=== PATIENT | female | born 1955 | race Caucasian/White ===

== ENCOUNTER → 2016-11-23 08:35 | Outpatient (CLI) | payer MEDICARE ==
[2016-11-23 09:09] LABS: BASOPHILS 0.5 % (0-2); EOSINOPHILS 4.6 % (0-7); HEMATOCRIT 45.9 % (36.0-48.0); HEMOGLOBIN 15.5 g/dL (12-16); IMMATURE GRANULOCYTES 0.2 % (0-5); LYMPHOCYTES 33.9 % (15-50); MCH 32.8 pg (26.0-34.0); MCHC 33.8 g/dL (31.0-37.0); MEAN PLATELET VOLUME 9.1 fL (7.4-10.4); MONOCYTES 6.3 % (2-11); NEUTROPHILS 54.5 % (40-80); PLATELET COUNT 220 10x3/uL (130-400); RBC 4.73 10x6/uL (4.00-5.40); RDW 11.6 % (11.5-14.5); WBC 8.5 10x3/uL (4.8-10.8)
[2016-11-23 09:33] LABS: ALBUMIN 3.9 g/dL (3.4-5.0); ALKALINE PHOSPHATASE 63 U/L (46-116); ALT (SGPT) 51 U/L (10-68); BILIRUBIN - TOTAL 0.26 mg/dL (0.2-1.3); CALC OSMOLALITY 274 mosm/kg (275-300); CALCIUM 9.3 mg/dL (8.5-10.1); CARBON DIOXIDE 32.6 mmol/L (21.0-32.0); CHLORIDE - SERUM 101 mmol/L (98-107); CHOL - HDL RATIO 2.1 ratio (2.3-4.1); CHOLESTEROL, TOTAL 139 mg/dL (0-200); CREATININE - SERUM 0.6 mg/dL (0.6-1.3); GLUCOSE 102 mg/dL (74-106); HDL CHOLESTEROL 67 mg/dL (32-96); LDL CHOLESTEROL 56 mg/dL (0-100); LDL-HDL RATIO 0.8 ratio (1.5-3.5); POTASSIUM - SERUM 4.3 mmol/L (3.5-5.1); PROTEIN - SERUM 8.2 g/dL (6.4-8.2); SODIUM 139 mmol/L (136-145); T4 THYROXIN - FREE 1.21 ng/dL (0.76-1.46); THYROID STIMULATING HORMONE 1.18 uIU/mL (0.36-3.74); TRIGLYCERIDE 84 mg/dL (30-200); UREA NITROGEN 5 mg/dL (7-18); eGFR NON AFRICAN AMERICAN > 90 mL/min (90-120)
== END | disposition home or self-care (01) ==
LOC: D.LAB 08:35
PROVIDERS: Family Medicine
DX: J44.9 Chronic obstructive pulmonary disease, unspecified (principal); Z00.00 Encounter for general adult medical examination without abnormal findings; E78.5 Hyperlipidemia, unspecified; I10 Essential (primary) hypertension; E55.9 Vitamin D deficiency, unspecified

== ENCOUNTER 2017-11-19 13:18 | Inpatient (IN) | payer MEDICARE ==
[~2017-11-19] VITALS: Ht 165.1 cm; Wt 49.9 kg
[2017-11-19] MEDS ORDERED: ADVAIR 500/501 DISK INH (13:24)
[2017-11-19] MEDS ORDERED: INDERAL 40 MG T40 MG PO (13:25)
[2017-11-19] MEDS ORDERED: PROAIR HFA8.5 GM INH (13:25)
[2017-11-19] MEDS ORDERED: IPRAT-ALBUT 0.5-3 ML UPD (13:25)
[2017-11-19] MEDS ORDERED: TYLENOL #4 W/CO1 TAB PO (13:26)
[2017-11-19] MEDS ORDERED: ATIVAN0.5 MG PO (13:27)
[2017-11-19] MEDS ORDERED: SOMA350 MG PO (13:27)
[2017-11-19 13:57] LABS: BASOPHILS 0.2 % (0-2); EOSINOPHILS 1.1 % (0-7); HEMATOCRIT 45.4 % (36.0-48.0); HEMOGLOBIN 15.7 g/dL (12-16); IMMATURE GRANULOCYTES 0.1 % (0-5); LYMPHOCYTES 20.9 % (15-50); MCH 32.7 pg (26.0-34.0); MCHC 34.6 g/dL (31.0-37.0); MCV 94.6 fL (80.0-100.0); MEAN PLATELET VOLUME 8.9 fL (7.4-10.4); MONOCYTES 4.4 % (2-11); NEUTROPHILS 73.3 % (40-80); PLATELET COUNT 225 10x3/uL (130-400); RDW 11.5 % (11.5-14.5); WBC 9.3 10x3/uL (4.8-10.8)
[2017-11-19 14:16] LABS: ALBUMIN 4.1 g/dL (3.4-5.0); ALKALINE PHOSPHATASE 66 U/L (46-116); ALT (SGPT) 41 U/L (10-68); BILIRUBIN - TOTAL 0.37 mg/dL (0.2-1.3); CALC OSMOLALITY 265 mosm/kg (275-300); CALCIUM 9.3 mg/dL (8.5-10.1); CARBON DIOXIDE 28.6 mmol/L (21.0-32.0); CHLORIDE - SERUM 96 mmol/L (98-107); CREATININE - SERUM 0.5 mg/dL (0.6-1.3); GLUCOSE 144 mg/dL (74-106); POTASSIUM - SERUM 3.8 mmol/L (3.5-5.1); PROTEIN - SERUM 8.3 g/dL (6.4-8.2); SODIUM 133 mmol/L (136-145); UREA NITROGEN 4 mg/dL (7-18); eGFR NON AFRICAN AMERICAN > 90 mL/min (90-120)
[2017-11-19 14:31] LABS: CKMB 1.2 U/L (0.0-3.6)
[2017-11-19 14:32] LABS: TROPONIN-I < 0.017 ng/mL (0.000-0.060)
[2017-11-19 15:00] VITALS: BP 192/88
[2017-11-19 15:39] LABS: CREATINE KINASE 90 UL (21-215); LIPASE 88 U/L (73-393); PRO BNP 188 pg/mL (0-125)
[2017-11-19 15:40] LABS: TROPONIN-I < 0.017 ng/mL (0.000-0.060)
[2017-11-19 16:16] VITALS: BP 161/84
[2017-11-19 16:36] LABS: UDS - AMPHET NEGATIVE QUAL (NEGATIVE); UDS - BARB NEGATIVE QUAL (NEGATIVE); UDS - BENZO NEGATIVE QUAL (NEGATIVE); UDS - COCAINE NEGATIVE QUAL (NEGATIVE); UDS - OPIATE POSITIVE QUAL (NEGATIVE); UDS - PCP NEGATIVE QUAL (NEGATIVE); UDS - THC NEGATIVE QUAL (NEGATIVE)
[2017-11-19 16:41] LABS: APPEARANCE CLEAR (CLEAR); BILIRUBIN NEGATIVE (NEGATIVE); COLOR YELLOW (YELLOW); GLUCOSE NEGATIVE (NEGATIVE); KETONE SMALL mg/dL (NEGATIVE); NITRITE POSITIVE (NEGATIVE); PROTEIN NEGATIVE (NEGATIVE); UROBILINOGEN NORMAL (NORMAL)
[2017-11-19 16:43] LABS: BACTERIA MODERATE /hpf (NONE SEEN); RED CELLS - URINE 0-5 /hpf (0-5); WHITE CELLS - URINE 0-5 /hpf (0-5)
[2017-11-19 17:00] VITALS: BP 103/99
[2017-11-19 18:00] VITALS: BP 193/96
[2017-11-19 19:03] VITALS: BP 178/88
[2017-11-19] MEDS ORDERED: PRAVACHOL40 MG PO (20:13)
[2017-11-19] MEDS ORDERED: B-12 DOTS500 MCG PO (20:15)
[2017-11-19] MEDS ORDERED: CALCI-CHEW1 TAB.CHEW PO (20:16)
[2017-11-19] MEDS ORDERED: VITAMIN B-12500 MCG PO (20:17)
[2017-11-19] MEDS ORDERED: VITAMIN D31000 UNI2 PO (20:17)
[2017-11-20] VITALS: BP 142/58
[2017-11-20 04:00] VITALS: BP 150/84
[2017-11-20 05:28] LABS: BASOPHILS 0.2 % (0-2); EOSINOPHILS 0 % (0-7); HEMATOCRIT 40.2 % (36.0-48.0); HEMOGLOBIN 13.8 g/dL (12-16); IMMATURE GRANULOCYTES 0.2 % (0-5); LYMPHOCYTES 26.8 % (15-50); MCHC 34.3 g/dL (31.0-37.0); MCV 93.3 fL (80.0-100.0); MEAN PLATELET VOLUME 8.9 fL (7.4-10.4); MONOCYTES 7.8 % (2-11); PLATELET COUNT 247 10x3/uL (130-400); RBC 4.31 10x6/uL (4.00-5.40); RDW 11.3 % (11.5-14.5); WBC 9.3 10x3/uL (4.8-10.8)
[2017-11-20 05:43] LABS: ALBUMIN 3.4 g/dL (3.4-5.0); ALKALINE PHOSPHATASE 45 U/L (46-116); ALT (SGPT) 32 U/L (10-68); CALC OSMOLALITY 264 mosm/kg (275-300); CALCIUM 8.6 mg/dL (8.5-10.1); CARBON DIOXIDE 29.4 mmol/L (21.0-32.0); CHLORIDE - SERUM 99 mmol/L (98-107); CREATININE - SERUM 0.5 mg/dL (0.6-1.3); GLUCOSE 109 mg/dL (74-106); MAGNESIUM - SERUM 1.5 mg/dL (1.8-2.4); POTASSIUM - SERUM 3.4 mmol/L (3.5-5.1); SODIUM 133 mmol/L (136-145); eGFR NON AFRICAN AMERICAN > 90 mL/min (90-120)
[2017-11-20 05:48] LABS: UREA NITROGEN 7 mg/dL (7-18)
[2017-11-20 09:06] VITALS: BP 152/79
[2017-11-20 11:15] VITALS: BP 152/78
[2017-11-20 16:11] VITALS: BP 173/74
[2017-11-20 21:27] VITALS: BP 181/84
[2017-11-21] VITALS: BP 113/86
[2017-11-21 04:00] VITALS: BP 146/72
[2017-11-21 05:47] LABS: BASOPHILS 0.1 % (0-2); EOSINOPHILS 0 % (0-7); IMMATURE GRANULOCYTES 0.2 % (0-5); LYMPHOCYTES 32.2 % (15-50); MCH 31.6 pg (26.0-34.0); MCHC 33.3 g/dL (31.0-37.0); MCV 94.7 fL (80.0-100.0); MEAN PLATELET VOLUME 9.2 fL (7.4-10.4); MONOCYTES 7.6 % (2-11); NEUTROPHILS 59.9 % (40-80); PLATELET COUNT 250 10x3/uL (130-400); RBC 4.12 10x6/uL (4.00-5.40); RDW 11.5 % (11.5-14.5); WBC 8.9 10x3/uL (4.8-10.8)
[2017-11-21 06:29] LABS: ALBUMIN 3.3 g/dL (3.4-5.0); ALKALINE PHOSPHATASE 40 U/L (46-116); ALT (SGPT) 33 U/L (10-68); BILIRUBIN - TOTAL 0.37 mg/dL (0.2-1.3); CALC OSMOLALITY 268 mosm/kg (275-300); CALCIUM 8.4 mg/dL (8.5-10.1); CARBON DIOXIDE 24.5 mmol/L (21.0-32.0); CHLORIDE - SERUM 102 mmol/L (98-107); CREATININE - SERUM 0.4 mg/dL (0.6-1.3); GLUCOSE 82 mg/dL (74-106); MAGNESIUM - SERUM 1.7 mg/dL (1.8-2.4); POTASSIUM - SERUM 3.5 mmol/L (3.5-5.1); PROTEIN - SERUM 6.7 g/dL (6.4-8.2); SODIUM 136 mmol/L (136-145); UREA NITROGEN 6 mg/dL (7-18); eGFR NON AFRICAN AMERICAN > 90 mL/min (90-120)
[2017-11-21 08:15] VITALS: BP 127/67
[2017-11-21 12:19] VITALS: BP 161/74
[2017-11-21 16:00] VITALS: BP 143/70
[2017-11-21 20:00] VITALS: BP 187/88
[2017-11-22 05:33] VITALS: BP 134/57
[2017-11-22 08:20] VITALS: BP 137/71
[2017-11-22 13:16] VITALS: BP 152/68
[2017-11-22 15:09] VITALS: BMI 18.3
[2017-11-22 16:37] VITALS: Ht 165.1 cm; Wt 49.9 kg
[2017-11-22 17:05] VITALS: BP 162/72
[2017-11-22 20:35] VITALS: BP 159/74
[2017-11-23 01:28] VITALS: BP 159/63
[2017-11-23 04:19] VITALS: BP 148/78
[2017-11-23 07:21] LABS: BASOPHILS 0.3 % (0-2); EOSINOPHILS 1.3 % (0-7); HEMATOCRIT 38.6 % (36.0-48.0); HEMOGLOBIN 13.2 g/dL (12-16); IMMATURE GRANULOCYTES 0.1 % (0-5); LYMPHOCYTES 38.8 % (15-50); MCH 32.2 pg (26.0-34.0); MCHC 34.2 g/dL (31.0-37.0); MCV 94.1 fL (80.0-100.0); MONOCYTES 9.5 % (2-11); PLATELET COUNT 208 10x3/uL (130-400); RDW 11.4 % (11.5-14.5); WBC 9.1 10x3/uL (4.8-10.8)
[2017-11-23 08:03] LABS: CALC OSMOLALITY 279 mosm/kg (275-300); CALCIUM 8.4 mg/dL (8.5-10.1); CARBON DIOXIDE 31.7 mmol/L (21.0-32.0); CHLORIDE - SERUM 104 mmol/L (98-107); CREATININE - SERUM 0.4 mg/dL (0.6-1.3); GLUCOSE 105 mg/dL (74-106); POTASSIUM - SERUM 3.2 mmol/L (3.5-5.1); SODIUM 142 mmol/L (136-145); UREA NITROGEN 5 mg/dL (7-18); eGFR NON AFRICAN AMERICAN > 90 mL/min (90-120)
[2017-11-23 08:20] VITALS: BP 163/79
[2017-11-23 12:16] VITALS: BP 127/60
[2017-11-23 16:33] VITALS: BP 129/65
[2017-11-23 22:28] VITALS: BP 189/80
[2017-11-24 04:16] VITALS: BP 164/68
[2017-11-24 09:42] VITALS: BP 179/82
[2017-11-24] MEDS ORDERED: PROTONIX40 MG PO (11:22)
[2017-11-24] MEDS ORDERED: MORPHINE SULFAT15 M4 PO (11:26)
[2017-11-29 18:09] LABS: AEROBE ID Final report (())
== END 2017-11-24 13:50 | disposition home or self-care (01) | DRG 552 ==
LOC: D.ER 13:18 → D.MS 17:45 → D.EDHOLD 17:45 → D.MS 18:30
PROVIDERS: Family Medicine
DX: M51.16 Intervertebral disc disorders with radiculopathy, lumbar region (principal); F17.203 Nicotine dependence unspecified, with withdrawal; Z68.1 Body mass index [BMI] 19.9 or less, adult; N30.90 Cystitis, unspecified without hematuria; I10 Essential (primary) hypertension; J44.9 Chronic obstructive pulmonary disease, unspecified; F41.9 Anxiety disorder, unspecified; E53.8 Deficiency of other specified B group vitamins; E55.9 Vitamin D deficiency, unspecified; G89.29 Other chronic pain; M81.0 Age-related osteoporosis without current pathological fracture; R63.0 Anorexia

== ENCOUNTER 2018-02-21 18:03 | Inpatient (IN) | payer MEDICARE ==
[~2018-02-21] VITALS: Ht 165.1 cm; Wt 44.3 kg
--- NOTE | ~2018-02-21 | EC ---
PATIENT:ANTONI JOSEPH DATE OF SERVICE: 02/21/18 SEX: F MEDICAL RECORD: [id number] DATE OF : 53 [facility] AGE OF PATIENT: 63 ADMISSION DATE: 02/21/18 REFERRING PHYSICIAN: INTERPRETING PHYSICIAN: KHADRA FREDERICK MD ECHOCARDIOGRAM REPORT ECHO CHARGES 4 ECHO COMPLETE Date: 02/22/18 CLINICAL DIAGNOSIS: SOB,CP ECHOCARDIOGRAPHIC MEASUREMENTS (adult normal given) AC root (d.<3.7cm) 3.1 cm LV Septum d (<1.2 cm> 1.0 cm Valve Excursion 1.4 cm LV Septum (systole) 1.1 cm Left Atria (s.<4.0cm> 3.6 cm LVPW d(<1.2cm) 0.7 cm RV (d.<2.3cm) 2.0 cm LVPW (sytole) 1.0 cm LV diastole(<5.6CM) 4.0 cm MV E-F(>70mm/sec) cm LV systole 2.7 cm LVOT Diameter 1.6 cm MV exc.(>10mm) cm Est.ejection fraction (50-75%) % DOPPLER: LVIT cm/sec A 106 cm/sec E 73 cm/sec LA cm/sec RVSP 17.6 mmHg LVOT cm/sec AOP1/2T m/s Asc. Ao cm/sec RVOT 81 cm/sec RA cm/sec PA 45 cm/sec AV Gradient Peak 9.8 mmHg AV Mean 7.1 mmHg AV Area 2.2 cm MV Gradient Peak 7.8 mmHg MV Mean 3.5 mmHg MV Area cm COMMENTS: Physical Medicine Teacher: Rut KRISHNAMURTHY Ethnographic Materials Conservator: 1 Dr. Frederick TAPE# PACS Pericardial Effusion N DATE OF SERVICE: 02/22/2018 Echocardiogram FINDINGS: 1. Left ventricular chamber size is within normal limits. Left ventricular systolic function is normal. Overall ejection fraction estimated at 50%. 2. Left atrium, right atrium, and right ventricle chamber sizes are within normal limits. 3. Valvular structures have normal structure and motion. ECHOCARDIOGRAM REPORT [id number] ANTONI JOSEPH BRAD 4. Doppler interrogation reveals trace mitral regurgitation, trace tricuspid regurgitation, no other valvular insufficiency or stenosis. Pulmonary systolic pressure is estimated at 18 mmHg. 5. No evidence of pericardial effusion or left ventricular thrombus. TRANSINT:[id number] Voice Confirmation ID: [id number] DOCUMENT ID: [id number] KHADRA FREDERICK MD at 1138 CC: [id number] DICTATION DATE: 02/22/18 1559 PATTERN GRADER CUTTER: 02/22/18 1820 ADM IN [facility] [address] [id number]
--- NOTE | ~2018-02-21 | HEMODYNAMI ---
PATIENT:ANTONI JOSEPH MEDICAL RECORD: [id number] : 53 [facility] D.2[id number] ADMISSION DATE: 02/21/18 Generatedon:02/23/20189:45 Patient name: ANTONI JOSEPH Patient #: [id number] SSN: : 1955 Date of study: 02/23/2018 Page: Of Hemodynamic Procedure Report Patient Data Patient Demographics Procedure consent was obtained First Name: ANTONI Gender: Female Last Name: JAKE : 1955 [facility] Initial: BRAD Age: 63 year(s) Patient #: [id number] Race: Unknown Additional ID: [id number] Contact details Address: [address] [place] [address] State: [place] City: [facility] Zip code: [address] Admission Admission Data Admission Date: 02/21/2018 Admission Time: 21:28 Room #: D.2118 Weight (lbs.): 90.39 Weight (kg.): 41 Lab Results Lab Result Date: 02/23/2018 Lab Result Time: 0:00 Biochemistry Name Units Result Min Max BUN mg/dl 9 --(*---)-- 7 18 Creatinine mg/dl 0.4 *-(----)-- 0.6 1.3 CBC Name Units Result Min Max Hemoglobin g/dl 13 -*(----)-- 13.5 17.5 Procedure Procedure Types Cath Procedure Diagnostic Procedure FFR/IVUS Intra-Coronary IVUS Initial PCI Procedure Coronary Stent Coronary Stent Initial x2 Peripheral Cath Diagnostic Procedure Systems Planner Peripheral Procedures Sasgw-Ftktuul-Zcl-Off IVUS Peripheral Initial Vessel Procedure Description Procedure Date Procedure Date: 02/23/2018 Procedure Start Time: 9:23 Procedure End Time: 9:44 Procedure Staff Name Function Luther Frederick MD Performing Physician Licha Gibbs RT Monitor Joy Hunt RT Scrub Cait Rodriguez RN Nurse Procedure Data Cath Procedure Fluoroscopy Diagnostic fluoroscopy Total fluoroscopy Time: 4.5 time: 4.5 min min Diagnostic fluoroscopy Total fluoroscopy dose: 500 dose: 500 mGy mGy Contrast Material Contrast Material Type Amount (ml) Isovue 300 113 Entry Location Entry Primary Successful Side Size Upsize Upsize Entry Closure Succes sful Closure Location (Fr) 1 (Fr) 2 (Fr) Remarks Device Remarks Femoral Left 6 Fr Exoseal artery Short Estimated blood loss: 10 ml Diagnostic catheters Device Type Used For End Catheter Placement MULTIPACK Pigtail 5 Fr Procedure catheter Procedure Complications No complications Procedure Medications Medication Administration Route Dosage Oxygen etCO2 Nasal cannula 2 l/min Lidocaine 2% added to field 20 Heparin Flush Bag added to field 2 bags (1000units/500ml NS) 0.9% NaCl I.V. 100 ml/hr Versed I.V. 1 mg Fentanyl I.V. 50 mcg Heparin Bolus I.V. 4000 units Versed I.V. 1 mg Fentanyl I.V. 50 mcg Fentanyl I.V. 50 mcg Versed I.V. 0.5 mg Hemodynamics Rest HGB: 13 (g/dl) Heart Rate: 98 (bpm) Snapshots Pre Cath Intra NCS Post Cath Vital Signs Time Heart Resp SPO2 etCO2 NIBP (mmHg) Rhythm Pain Sedation Rate (ipm) (%) (mmHg) Status Level (bpm) 8:49:22 109 25 95 0 151/97(118) NSR 0 (11) 10(A) , No pain 8:53:22 105 21 99 23.6 133/84(118) NSR 0 (11) 10(A) , No pain 8:57:30 101 18 98 25.1 114/75(93) NSR 0 (11) 10(A) , No pain 9:01:34 100 16 98 31.2 108/71(88) NSR 0 (11) 10(A) , No pain 9:05:35 102 13 97 14.4 99/70(82) NSR 0 (11) 10(A) , No pain 9:09:35 101 13 97 8.3 99/66(86) NSR 0 (11) 10(A) , No pain 9:13:35 98 13 97 10.6 106/65(80) NSR 0 (11) 10(A) , No pain 9:17:36 95 19 98 15.2 100/65(83) NSR 0 (11) 10(A) , No pain 9:21:36 92 14 98 27.3 92/61(82) NSR 0 (11) 10(A) , No pain 9:25:33 92 15 98 10.6 96/56(81) NSR 0 (11) 9(A) , No pain 9:29:33 95 18 98 26.6 89/57(72) NSR 0 (11) 9(A) , No pain 9:33:30 93 15 98 33.4 92/52(72) NSR 0 (11) 9(A) , No pain 9:37:26 97 15 99 31.9 104/62(80) NSR 0 (11) 9(A) , No pain 9:41:24 101 16 99 14.4 107/67(84) NSR 0 (11) 10(A) , No pain Medications Time Medication Route Dose Verified Delivered Reason Notes Effectiveness by by 8:55:14 Oxygen etCO2 2 Luther Akbarie used for Nasal l/min Otoniel Rodriguez RN procedure cannula 8:55:23 Lidocaine 2% added 20ml Luther Luther for local to vial Otoniel Frederick MD anesthetic field 8:55:29 Heparin Flush added 2 Luther Luther used for Bag to bags Otoniel Frederick MD procedure (1000units/500ml field NS) 8:55:37 0.9% NaCl I.V. 100 Luther Buffie Per physician ml/hr Otoniel Rodriguez RN 9:21:24 Versed I.V. 1 mg Luther Webberie for sedation Otoniel Rodriguez RN 9:21:30 Fentanyl I.V. 50 Luther Buffie for sedation mcg Otoniel Rodriguez RN 9:25:18 Versed I.V. 1 mg Luther Buffie for sedation Otoniel Rodriguez RN 9:25:21 Fentanyl I.V. 50 Luther Buffie for sedation mcg Otoniel Rodriguez RN 9:26:55 Heparin Bolus I.V. 4000 Luther Buffie for verifi ed units Otoniel Rodriguez RN anticoagulation with dr frederick 9:31:49 Fentanyl I.V. 50 Luther Buffie for sedation mcg Otoniel Rodriguez RN 9:31:55 Versed I.V. 0.5 Luther Buffie for sedation mg Otoniel Rodriguez RN Procedure Log Time Note 8:26:10 Patient Weight : 90.39 lbs 8:27:03 Cait Rodriguez RN sent for patient. Start room use. 8:27:04 Time tracking: Regular hours (M-F 7:00 - 5:00) 8:27:09 Plan of Care:Hemodynamics will remain stable., Cardiac rhythm will remain stable., Comfort level will be maintained., Respiratory function will remain adequate., Patient/ family verbilizes understanding of procedure., Procedure tolerated without complication., Recovers from procedure without complications.. 8:36:01 Lab Result : Hemoglobin 13 g/dl 8:36:01 Lab Result : Creatinine 0.4 mg/dl 8:36:01 Lab Result : BUN 9 mg/dl 8:48:42 Patient received from Med II to CCL 2 Alert and oriented. Tansferred to table in Supine position. 8:48:43 Warm blankets applied, and tanesha hugger turned on for patient comfort. 8:48:44 Correct patient and procedure confirmed by team. 8:48:45 Signed procedure consent form obtained from patient. 8:48:46 ECG and BP/O2 sat monitors applied to patient. 8:48:47 Vital chart was started 8:48:48 Baseline sample Acquired. 8:49:05 Rhythm: sinus rhythm 8:49:06 Full Disclosure recording started 8:49:17 H&P Date Dictated: 02/23/2018 New H&P dictated by physician.. 8:49:19 Pre-procedure instructions explained to patient. 8:49:19 Pre-op teaching completed and patient verbalized understanding. 8:49:22 Family in patients room. 8:49:28 Patient NPO since Midnight. 8:49:30 Is the patient allergic to Iodine/contrast media? No. 8:49:32 Was the patient premedicated? No 8:49:32 Is patient on blood thinner?Yes 8:49:35 ACC The patient was administered the following blood thiners within the last 24 hours: ACCPlavix 8:49:38 Patient diabetic? No. 8:49:40 Previous problem with sedation/anesthesia? No ? 8:49:42 Snore? Yes 8:49:43 Sleep apnea? No 8:49:44 Deviated septum? No 8:49:45 Opens mouth fully? Yes 8:49:45 Sticks out tongue? Yes 8:49:49 Airway obstruction? Yes copd 8:49:51 Dentures? No ? 8:49:55 Pre procedure: right dorsailis pedis pulse 1+ Palpable, but thready & weak; easily obliterated 8:49:58 Pre procedure: left dorsailis pedis pulse 1+ Palpable, but thready & weak; easily obliterated 8:49:59 Patient pain scale 0/10 ?. 8:50:06 IV patent on arrival in left forearm with 0.9% NaCl at [facility]. 8:50:08 Lab results completed and on chart. 8:50:14 Left groin area was prepped with chlora-prep and draped in sterile fashion 8:50:14 Alarms reviewed by R. N. 8:50:15 Sharps counted by scrub and verified by R.N. 8:52:41 Physician paged 8:55:14 Oxygen 2 l/min etCO2 Nasal cannula was administered by Cait Rodriguez RN; used for procedure; 8:55:23 Lidocaine 2% 20ml vial added to field was administered by Luther Frederick MD; for local anesthetic; 8:55:29 Heparin Flush Bag (1000units/500ml NS) 2 bags added to field was administered by Luther Frederick MD; used for procedure; 8:55:37 0.9% NaCl 100 ml/hr I.V. was administered by Cait Rodriguez RN; Per physician; 9:05:56 Zero performed for pressure channel P1 9:12:39 Physician arrived 9:20:13 --------ALL STOP TIME OUT------ 9:20:14 Final Timeout: patient, procedure, and site verified with staff and physician. All members of the team are in agreement. 9:20:16 Left groin site verified by team. 9:20:22 Physical assessment completed. ASA score P 2 - A patient with mild systemic disease as per Luther Frederick MD. 9:20:27 Sedation plan: IV Moderate Sedation Medication:Versed, Fentanyl 9:21:24 Versed 1 mg I.V. was administered by Cait Rodriguez RN; for sedation; 9:21:30 Fentanyl 50 mcg I.V. was administered by Cait Rodriguez RN; for sedation; 9:23:37 Use device set Femoral Dx 9:23:40 Procedure started. 9:23:53 Local anesthetic to left femerol artery with Lidocaine 2% by Luther Frederick MD.INITIAL ACCESS ONLY 9:24:03 A 6 Fr Short sheath was inserted into the Left Femoral artery 9:25:18 Versed 1 mg I.V. was administered by Cait Rodriguez RN; for sedation; 9:25:21 Fentanyl 50 mcg I.V. was administered by Cait Rodriguez RN; for sedation; 9:25:22 ACIST Syringe (30959) opened to sterile field. 9:25:23 Bag Decanter (2002) opened to sterile field. 9:25:24 Medline Cath Pack ([id number]) opened to sterile field. 9:25:25 DIAGNOSTIC WIRE .035 260cm J wire (880720) opened to sterile field. 9:25:26 ACIST Hand Control (39806) opened to sterile field. 9:25:27 ACIST Manifold (61704) opened to sterile field. 9:25:29 Tegaderm 4 x 4 (1626W) opened to sterile field. 9:25:30 PERCUTANEOUS ENTRY 19GA needle opened to sterile field. 9:25:47 SHEATH 6FR Penn (GKH155) opened to sterile field. 9:26:06 A MULTIPACK Pigtail 5 Fr catheter was advanced over the wire and used for Procedure. 9:26:18 Abdominal angiogram w/ runoff was performed. 9:26:21 Left leg runoff performed. 9:26:22 Right leg runoff performed. 9:26:30 Catheter removed. 9:26:44 GUIDE 6FR XBLAD 3.5 catheter ([id number]) opened to sterile field. 9::55 Heparin Bolus 4000 units I.V. was administered by Cait Rodriguez RN; for anticoagulation; verified with dr frederick 9:26:58 6 Fr XBLAD3.5 guide catheter was inserted over the wire 9:28:02 Choice pt ex wire advanced. 9:28:18 Wire advanced across lesion. 9:29:02 [place] Stebbins Eagleye IVUS Catheter (44247O) opened to sterile field. 9:29:04 IVUS catheter advanced over wire. 9:30:09 IVUS catheter removed over wire. 9:31:49 Fentanyl 50 mcg I.V. was administered by Cait Rodriguez RN; for sedation; 9::55 Versed 0.5 mg I.V. was administered by Cait Rodriguez RN; for sedation; 9:33:04 Place stent Inflation Number: 1 A DIANE RX 3.0 x 22 stent ([id number]) was prepped and advanced across the Prox LAD. The stent was deployed at 15 SERGEY for 0:05 (min:sec). 9:35:10 Place stent Inflation Number: 2 A DIANE RX 2.5 x 08 stent ([id number]) was prepped and advanced across the Prox LAD. The stent was deployed at 15 SERGEY for 0:10 (min:sec). 9:35:23 Inflation number: 3 The stent balloon was then re-inflated across the Prox LAD to 19 SERGEY for 0:11 (min:sec). 9:35:58 Wire redirected to CX. 9:37:35 Place stent Inflation Number: 1 A DIANE RX 2.5 x 15 stent ([id number]) was prepped and advanced across the Mid CX. The stent was deployed at 15 SERGEY for 0:10 (min:sec). 9:39:29 EXOSEAL 6Fr (EX600) opened to sterile field. 9:39:45 Stent catheter was removed intact over wire. 9:39:46 Guide catheter removed. 9:39:59 Sheath removed intact; hemostasis achieved with Exoseal to the Left Femoral artery. 9:40:03 Procedure ended.(Physican Out) 9:40:52 Fluoroscopy time 04.50 minutes. 9:40:58 Flurop Dose total: 500 9:40:58 Fluoroscopy dose: 500 mGy 9:41:03 Contrast amount:Isovue 300 113ml. 9:41:04 Sharps counted by scrub and verified by R.N. 9:41:06 Insertion/operative site no bleeding no hematoma. 9:41:11 Post-op/insertion site Left Femoral artery dressed using a 4 x 4 and Tegaderm. 9:41:19 Post Procedure Pulses reassessed and unchanged 9:41:24 Post-procedure physical assessment completed. ASA score P 2 - A patient with mild systemic disease as per Luther Frederick MD. 9:41:27 Post procedure rhythm: unchanged. 9:41:30 Estimated blood loss: 10 ml 9:41:36 Post procedure instruction explained to patient.Patient verbalizes understanding. 9:43:09 Procedure type changed to Cath procedure, Diagnostic procedure, FFR/IVUS, Intra-Coronary IVUS Initial, PCI procedure, Coronary Stent, Coronary Stent Initial x2, Peripheral Cath Diagnostic Procedure, Systems Planner Peripheral Procedures, Xmtpg-Giwuysj-Fjh-Off, IVUS Peripheral Initial Vessel 9:43:12 Procedure and supply charges have been captured, reviewed, submitted and are correct. 9:44:02 Procedure Complication : No complications 9:44:04 Vital chart was stopped 9:44:07 See physician's report for complete and final results. 9:44:10 Report given to Pre/Post Procedure Room. 9:44:15 Patient transfered to Pre/Post Procedure Room with Stretcher. 9:44:17 Procedure ended. 9:44:17 Full Disclosure recording stopped 9:44:20 End room use (Document Last) Intervention Summary Intervention Notes Time ActionType Lesion and Equipment Used Action# Pressure Duration Attributes 9:33:04 Place stent Prox LAD DIANE RX 3.0 x 1 15 00:05 22 stent ([id number]) 9:35:10 Place stent Prox LAD DIANE RX 2.5 x 2 15 00:10 08 stent ([id number]) 9:35:23 Reinflate Prox LAD DIANE RX 2.5 x 3 19 00:11 stent 08 stent balloon ([id number]) 9:37:35 Place stent Mid CX IDANE RX 2.5 x 1 15 00:10 15 stent ([id number]) Device Usage Item Name Manufacture Quantity Catalog [facility] Lot# / Number Charge Number Stock Stock Serial# Code ACIST Syringe Acist 1 03933 774458 262253 024683 20 (63134) Medical Systems Inc Bag Decanter Microtek 1 2001S 108017 46469 817946 5 () Medical Inc. Medline Cath Medline 1 [id number] 168765 77790 718451 5 Pack ([id number]) DIAGNOSTIC St Jigar 1 567412 138410 363282 724606 30 WIRE .035 260cm J wire (821677) ACIST Hand Acist 1 78121 005904 830444 921943 5 Control Medical (47725) Systems Inc ACIST Manifold Acist 1 22956 561601 060077 917799 5 (94118) Medical Systems Inc Tegaderm 4 x 4 3M 1 1626W 881787 204327 470742 5 (1626W) PERCUTANEOUS Cook Medical 1 D74350 258574 150185 5 ENTRY 19GA needle SHEATH 6FR Terumo 1 OQT071 746785 775065 149573 40 Penn (NBT102) MULTIPACK Cardinal 1 058062 5 Pigtail 5 Fr Health catheter GUIDE 6FR Cardinal 1 [id number] 293505 932599 961538 10 XBLAD 3.5 Health catheter ([id number]) [place] 1 84377L 803066 999420 083262 8 Stebbins Eagleye IVUS Catheter (71483S) DIANE RX 3.0 x Medtronic 1 [id number] 942343 3082986 772053 5 [id number] 22 stent ([id number]) DIANE RX 2.5 x Medtronic 1 [id number] 995718 4813489 522912 5 [id number] 08 stent ([id number]) DIANE RX 2.5 x Medtronic 1 [id number] 973639 3088961 887805 5 [id number] 15 stent ([id number]) EXOSEAL 6Fr Cardinal 1 EX600 270714 123394 972884 10 (EX600) Health Signature Audit [place] Stage Time Signature Unsigned Intra-Procedure 02/23/2018 Licha Gibbs 9:45:09 AM RT(R) Signatures Monitor : Licha Gibbs Signature : RT Date : Time : [facility] [address] [place] [address]
--- NOTE | ~2018-02-21 | OP ---
PATIENT NAME: ANTONI JOSEPH MEDICAL RECORD: [id number] :53 LOCATION:[facility] ADMISSION DATE:02/21/18 SURGEON: KHADRA KLEIN MD DATE OF OPERATION: 02/23/2018 PROCEDURES: 1. PTCA and stent, left circumflex. 2. PTCA and stent, LAD. 3. Intravascular ultrasound of LAD. 4. Selective coronary angiography. INDICATION: Angina and coronary disease. PROCEDURE IN DETAIL: After informed consent was obtained with detailed description of risks and benefits as well as alternative therapies, the patient elected to proceed with angiogram and angioplasty. The right femoral area was prepped and draped in normal sterile fashion. The right femoral artery was cannulated via modified Seldinger technique with placement of 6-Ugandan sheath. All catheters were exchanged through this sheath. FINDINGS: The left anterior descending has greater than 80% stenosis, confirmed by intravascular ultrasound throughout the proximal portion. This was addressed with a 3.0 x 22 and a 2.5 x 8-mm Darian stents. Result was 0% residual stenosis throughout. The left circumflex had 80% stenosis in mid vessel. This was addressed with a 2.5 x 15-mm Darian. Result was 0% residual stenosis. OVERALL IMPRESSION: Successful PTCA and stent of LAD and circumflex, both going from 80% initial stenosis to 0% residual. TRANSINT:[id number] Voice Confirmation ID: [id number] DOCUMENT ID: [id number] KHADRA KLEIN MD at 1138 CC: [id number] DICTATION DATE: 02/23/18 0945 DUPLICATOR PUNCH SET UP OPERATOR: 02/23/18 1044 [place] [address]
--- NOTE | ~2018-02-21 | OP ---
PATIENT NAME: ANTONI JOSEPH MEDICAL RECORD: [id number] :53 LOCATION:D.M2 D.2118 ADMISSION DATE:02/21/18 SURGEON: KHADRA KLEIN MD DATE OF OPERATION: 02/22/2018 DATE OF SERVICE: 02/22/2018 PROCEDURES: 1. PTCA stent RCA. 2. Intravascular ultrasound RCA. 3. Left heart catheterization. 4. Selective coronary angiography. 5. Left ventriculogram. INDICATION: Unstable angina and coronary artery disease. PROCEDURE IN DETAIL: After informed consent was obtained and after a detailed description of risks, benefits as well as alternative therapies, the patient elected to proceed with angiogram and angioplasty. The right femoral area was prepped and draped in normal sterile fashion. Right femoral artery was cannulated via modified Seldinger technique with placement of 6-Vietnamese sheath. All catheters exchanged through this sheath. FINDINGS: Left ventriculogram was performed in standard 30-degree DUNCAN view, reveals good cardiac wall motion throughout all segments. Overall ejection fraction estimated 60%. SELECTIVE CORONARY ANGIOGRAPHY: 1. Left main has no significant angiographic disease. 2. Left anterior descending has hazy area in the mid vessel that will be better delineated by intravascular ultrasound. 3. The left circumflex has 80+ percent stenosis in the mid vessel. 4. Right coronary has 78% stenosis in the mid vessel confirmed by intravascular ultrasound. PTCA STENT OF THE RCA: The stent used was a 3.5 x 18 mm Darian. Result was 0% residual stenosis. OVERALL IMPRESSION: Successful percutaneous transluminal coronary angioplasty stent of the right coronary artery going from 80% initial stenosis to 0% residual. PLAN: PTCA stent of the circumflex and LAD in the near future. TRANSINT:[id number] Voice Confirmation ID: [id number] DOCUMENT ID: [id number] KHADRA KLEIN MD at 1256 CC: [id number] DICTATION DATE: 02/22/18 1049 PLASTIC INSTALLER: 02/22/18 1117 [place] [address]
--- NOTE | ~2018-02-21 | HEMODYNAMI ---
PATIENT:ANTONI JOSEPH MEDICAL RECORD: [id number] : 53 [id number] ADMISSION DATE: 02/21/18 Generatedon:02/22/201810:50 Patient name: ANTONI JOSEPH Patient #: [id number] SSN: : 1955 Date of study: 02/22/2018 Page: Of Hemodynamic Procedure Report Patient Data Patient Demographics Procedure consent was obtained First Name: ANTONI Gender: Female Last Name: JAKE : 1955 [facility] Initial: BRAD Age: 63 year(s) Patient #: [id number] Race: Unknown Additional ID: [id number] Contact details Address: [address] [place] [address] State: [place] City: [facility] Zip code: [address] Admission Admission Data Admission Date: 02/21/2018 Admission Time: 21:28 Room #: D.2118 Weight (lbs.): 90.39 Weight (kg.): 41 Procedure Procedure Types Cath Procedure Diagnostic [facility]Coronaries FFR/IVUS Intra-Coronary IVUS Initial PCI Procedure Coronary Stent Coronary Stent Initial Procedure Description Procedure Date Procedure Date: 02/22/2018 Procedure Start Time: 10:31 Procedure End Time: 10:48 Procedure Staff Name Function Luther Frederick MD Performing Physician Evans Elena RT Monitor Joy Hunt RT Scrub Cait Rodriguez RN Nurse Procedure Data Cath Procedure Fluoroscopy Diagnostic fluoroscopy Total fluoroscopy Time: 3.3 time: 3.3 min min Diagnostic fluoroscopy Total fluoroscopy dose: 210 dose: 210 mGy mGy Contrast Material Contrast Material Type Amount (ml) Isovue 300 91 Entry Location Entry Primary Successful Side Size Upsize Upsize Entry Closure Succes sful Closure Location (Fr) 1 (Fr) 2 (Fr) Remarks Device Remarks Femoral Right 5 Fr 6 Fr Exoseal artery Short Estimated blood loss: 10 ml Procedure Complications No complications Procedure Medications Medication Administration Route Dosage Oxygen etCO2 Nasal cannula 2 l/min Lidocaine 2% added to field 20 Heparin Flush Bag added to field 2 bags (1000units/500ml NS) 0.9% NaCl I.V. 100 ml/hr Versed I.V. 1 mg Fentanyl I.V. 50 mcg 0.9% NaCl I.V. bolus 500 ml Versed I.V. 1 mg Fentanyl I.V. 50 mcg Heparin Bolus I.V. 4000 units Versed I.V. 0.5 mg Fentanyl I.V. 25 mcg Hemodynamics Rest Heart Rate: 67 (bpm) Pressure Samples Time Site Value (mmHg) Purpose Heart Use Rate(bpm) 10:38 AO 97/43(65) Snapshot 83 Snapshots Pre Cath Intra NCS Post Cath Vital Signs Time Heart Resp SPO2 etCO2 NIBP Rhythm Pain Sedation Rate (ipm) (%) (mmHg) (mmHg) Status Level (bpm) 9:58:28 89 24 100 28.1 107/77(95) NSR 0 (11) 10(A) , No pain 10:02:28 86 21 99 28.1 108/69(88) NSR 0 (11) 10(A) , No pain 10:06:27 86 23 98 25.1 96/65(80) NSR 0 (11) 10(A) , No pain 10:10:25 87 13 98 16.7 90/62(74) NSR 0 (11) 10(A) , No pain 10:14:21 86 12 98 12.1 86/58(70) NSR 0 (11) 10(A) , No pain 10:18:16 85 11 98 25.1 91/59(74) NSR 0 (11) 10(A) , No pain 10:22:12 87 12 98 31.9 87/61(70) NSR 0 (11) 10(A) , No pain 10:26:07 86 12 98 25.1 77/58(67) NSR 0 (11) 10(A) , No pain 10:30:01 83 10 99 14.4 76/52(63) NSR 0 (11) 10(A) , No pain 10:33:54 85 7 99 16.7 76/53(62) NSR 0 (11) 10(A) , No pain 10:37:46 84 9 99 20.5 88/56(73) NSR 0 (11) 10(A) , No pain 10:41:43 83 7 99 14.4 76/52(62) NSR 0 (11) 10(A) , No pain 10:45:37 87 10 99 23.6 80/51(63) NSR 0 (11) 10(A) , No pain Medications Time Medication Route Dose Verified Delivered Reason Notes Effectiveness by by 9:57:20 Oxygen etCO2 2 Luther Akbarie used for Nasal l/min Otoniel Rodriguez RN procedure cannula 9:57:27 Lidocaine 2% added 20ml Luther Luther for local to vial Otoniel Frederick MD anesthetic field 9:57:36 Heparin Flush added 2 Luther Luther used for Bag to bags Otoniel Frederick MD procedure (1000units/500ml field NS) 9:57:45 0.9% NaCl I.V. 100 Luther Buffie Per physician ml/hr Otoniel Rodriguez RN 10:05:05 0.9% NaCl I.V. 500 Luther Buffie Per physician bolus ml Otoniel Rodriguez RN 10:26:39 Versed I.V. 1 mg Luther Buffie for sedation Otoniel Rodriguez RN 10:26:44 Fentanyl I.V. 50 Luther Buffie for sedation mcg Otoniel Rodriguez RN 10:31:09 Versed I.V. 1 mg Luther Buffie for sedation Otoniel Rodriguez RN 10:31:12 Fentanyl I.V. 50 Luther Buffie for sedation mcg Otoniel Rodriguez RN 10:36:35 Heparin Bolus I.V. 4000 Luther Buffie for verif ied units Otoniel Rodriguez RN anticoagulation with dr frederick 10:38:22 Versed I.V. 0.5 Luther Buffie for sedation mg Otoniel Rodriguez RN 10:38:26 Fentanyl I.V. 25 Luther Buffie for sedation mcg Otoniel Rodriguez RN Procedure Log Time Note 9:30:35 Evans HALE(R) sent for patient. Start room use. 9:39:36 Time tracking: Regular hours (M-F 7:00 - 5:00) 9:39:41 Plan of Care:Hemodynamics will remain stable., Cardiac rhythm will remain stable., Comfort level will be maintained., Respiratory function will remain adequate., Patient/ family verbilizes understanding of procedure., Procedure tolerated without complication., Recovers from procedure without complications.. 9:47:33 Patient received from Med II to CCL 2 Alert and oriented. Tansferred to table in Supine position. 9:47:34 Warm blankets applied, and tanesha hugger turned on for patient comfort. 9:47:35 Correct patient and procedure confirmed by team. 9:47:36 Signed procedure consent form obtained from patient. 9:47:37 ECG and BP/O2 sat monitors applied to patient. 9:57:20 Oxygen 2 l/min etCO2 Nasal cannula was administered by Cait Rodriguez RN; used for procedure; 9:57:21 Vital chart was started 9:57:27 Lidocaine 2% 20ml vial added to field was administered by Luther Frederick MD; for local anesthetic; 9:57:36 Heparin Flush Bag (1000units/500ml NS) 2 bags added to field was administered by Luther Frederick MD; used for procedure; 9:57:45 0.9% NaCl 100 ml/hr I.V. was administered by Cait Rodriguez RN; Per physician; 10:02:28 Baseline sample Acquired. 10:03:24 Rhythm: sinus rhythm 10:03:25 Full Disclosure recording started 10:03:33 H&P Date Dictated: 02/22/2018 Within 30 days and on chart.. 10:03:33 Pre-procedure instructions explained to patient. 10:03:34 Pre-op teaching completed and patient verbalized understanding. 10:03:36 Family in patients room. 10:03:37 Patient NPO since Midnight. 10:03:39 Is the patient allergic to Iodine/contrast media? No. 10:03:44 Is patient on blood thinner?Yes 10:03:47 ACC The patient was administered the following blood thiners within the last 24 hours: ACCPlavix 10:03:49 Patient diabetic? No. 10:03:51 Previous problem with sedation/anesthesia? No ? 10:03:52 Snore? No 10:04:01 Sleep apnea? No 10:04:02 Deviated septum? No 10:04:03 Opens mouth fully? Yes 10:04:04 Sticks out tongue? Yes 10:04:06 Airway obstruction? Yes COPD, Emphysema 10:04:08 Dentures? No ? 10:04:36 Pre procedure: right dorsailis pedis pulse 1+ Palpable, but thready & weak; easily obliterated 10:04:51 RADIAL TOO SMALL 10:04:54 Patient pain scale 0/10 ?. 10:05:01 IV patent on arrival in left forearm with 0.9% NaCl at [facility]. 10:05:03 Lab results completed and on chart. 10:05:05 0.9% NaCl 500 ml I.V. bolus was administered by Cait Rodriguez RN; Per physician; 10:05:06 Right groin area was prepped with chlora-prep and draped in sterile fashion 10:05:07 Alarms reviewed by R. N. 10:05:07 Sharps counted by scrub and verified by R.N. 10:07:22 Use device set Femoral Dx 10:07:24 Tegaderm 4 x 4 ([id number]) opened to sterile field. 10:07:25 ACIST Manifold (98359) opened to sterile field. 10:07:27 ACIST Hand Control (38887) opened to sterile field. 10:07:29 ACIST Syringe (11903) opened to sterile field. 10:07:29 Bag Decanter (2002S) opened to sterile field. 10:07:29 Medline Cath Pack ([id number]) opened to sterile field. 10:07:37 DIAGNOSTIC WIRE .035 260cm J wire (558282) opened to sterile field. 10:07:44 SHEATH Prelude 5Fr 0.035 (ZNC-1O-49-035) opened to sterile field. 10:14:31 Zero performed for pressure channel P1 10:15:45 Patient Weight : 90.39 lbs 10:25:06 Final Timeout: patient, procedure, and site verified with staff and physician. All members of the team are in agreement. 10:25:06 --------ALL STOP TIME OUT------ 10:25:14 Right groin site verified by team. 10:25:16 Physical assessment completed. ASA score P 2 - A patient with mild systemic disease as per Luther Frederick MD. 10:25:21 Sedation plan: IV Moderate Sedation Medication:Versed, Fentanyl 10:26:39 Versed 1 mg I.V. was administered by Cait Rodriguez RN; for sedation; 10::44 Fentanyl 50 mcg I.V. was administered by Cait Rodriguez RN; for sedation; 10:30:56 Procedure started. 10:31:02 Local anesthetic to right femoral artery with Lidocaine 2% by Luther Frederick MD.INITIAL ACCESS ONLY 10:31:09 Versed 1 mg I.V. was administered by Cait Rodriguez RN; for sedation; 10:31:12 Fentanyl 50 mcg I.V. was administered by Cait Rodriguez RN; for sedation; 10:31:58 A 5 Fr sheath was inserted into the Right Femoral artery 10:32:01 DXT PIG 5fr opened to sterile field. 10:32:23 5fr DXT PIG advanced over the wire. 10:33:07 LV angiography performed. 10:33:25 LV gram done using DUNCAN 10:33:31 EF : 40 % 10:33:45 Catheter removed. 10:33:47 DXT JL4 5fr opened to sterile field. 10:34:04 5fr DXT JL4 advanced over the wire. 10:34:34 LCA angiography performed. 10:35:15 Catheter removed. 10:35:17 DXT 3DRC 5fr opened to sterile field. 10:35:36 5fr DXT 3DRC advanced over the wire. 10:35:38 RCA angiography performed. 10:35:43 Use device set [facility] PCI 10:35:56 Catheter removed. 10:36:07 INFLATOR Merit BasixCompak (KJ4742) opened to sterile field. 10:36:12 CHOICE PT Extra Support 182cm wire ([id number]) opened to sterile field. 10:36:16 SHEATH Prelude 6Fr 0.035 (WKV-8S-96-035) opened to sterile field. 10:36:17 Auburn Lytton Eagleye IVUS Catheter (44074C) opened to sterile field. 10:36:24 GUIDE 6FR AR 1.0 catheter ([id number]) opened to sterile field. 10:36:35 Heparin Bolus 4000 units I.V. was administered by Cait Rodriguez RN; for anticoagulation; verified with dr frederick 10:36:38 Sheath upsized to a 6 Fr Short. 10:36:45 6 Fr AR 1 guide catheter was inserted over the wire 10:37:34 CPTXS wire advanced. 10:38:19 Wire advanced across lesion. 10:38:22 Versed 0.5 mg I.V. was administered by Cait Rodriguez RN; for sedation; 10:38:25 IVUS catheter advanced over wire. 10:38:26 Fentanyl 25 mcg I.V. was administered by Cait Rodriguez RN; for sedation; 10:38:49 IVUS pass to RCA lesion performed. 10:39:37 IVUS catheter removed over wire. 10:41:07 Place stent Inflation Number: 1 A DIANE RX 3.5 x 18 stent ([id number]) was prepped and advanced across the Mid RCA. The stent was deployed at 11 SERGEY for 0:10 (min:sec). 10:43:58 EXOSEAL 6Fr (EX600) opened to sterile field. 10:44:13 Stent catheter was removed intact over wire. 10:44:14 Wire removed. 10:44:15 Guide catheter removed. 10:44:23 Sheath removed intact; hemostasis achieved with Exoseal to the Right Femoral artery. 10:44:25 Procedure ended.(Physican Out) 10:46:18 Fluoroscopy time 03.30 minutes. 10:46:22 Flurop Dose total: 210 10:46:22 Fluoroscopy dose: 210 mGy 10:46:26 Contrast amount:Isovue 300 91ml. 10:46:28 Sharps counted by scrub and verified by R.N. 10:46:29 Insertion/operative site no bleeding no hematoma. 10:46:32 Post-op/insertion site Right Femoral artery dressed using a 4 x 4 and Tegaderm. 10:46:33 Post Procedure Pulses reassessed and unchanged 10:46:35 Post-procedure physical assessment completed. ASA score P 2 - A patient with mild systemic disease as per Luther Frederick MD. 10:46:38 Post procedure rhythm: unchanged. 10:46:40 Estimated blood loss: 10 ml 10:46:41 Post procedure instruction explained to patient.Patient verbalizes understanding. 10:46:42 Patient needs reinforcement of post procedure teaching. 10:46:53 Procedure type changed to Cath procedure, Diagnostic procedure, LHC, LHC w/Coronaries, FFR/IVUS, Intra-Coronary IVUS Initial, PCI procedure, Coronary Stent, Coronary Stent Initial 10:46:55 Procedure and supply charges have been captured, reviewed, submitted and are correct. 10:46:57 Procedure Complication : No complications 10:48:21 Vital chart was stopped 10:48:21 See physician's report for complete and final results. 10:48:38 Report given to PCU. 10:48:42 Patient transfered to PCU with Bed. 10:48:44 Procedure ended. 10:48:44 Full Disclosure recording stopped 10:48:47 End room use (Document Last) Intervention Summary Intervention Notes Time ActionType Lesion and Equipment Used Action# Pressure Duration Attributes 10:41:07 Place stent Mid RCA DIANE RX 3.5 x 1 11 00:10 18 stent ([id number]) Device Usage Item Name Manufacture Quantity Catalog Number Hospital Part Current Minimal Lot# / Charge Number Stock Stock Serial# Code Tegaderm 4 x 4 3M 1 [id number] [id number] [id number] 5 (1626W) ACIST Manifold Acist 1 68228 787360 684717 766532 5 (15251) [employer] Inc ACIST Hand Acist 1 17018 844274 999197 600303 5 Control (86252) [employer] Inc ACIST Syringe Acist 1 35610 044633 185699 768217 20 (31383) [employer] Systems Inc Bag Decanter Microtek 1 2001S 798756 54393 893866 5 (2002S) Medical Inc. Medline Cath Medline 1 [id number] 359501 28459 864629 5 Pack ([id number]) DIAGNOSTIC WIRE St Jigar 1 [id number] 875685 278783 337343 30 .035 260cm J wire (316970) SHEATH Prelude Merit 1 [id number]-3D-[id number] 257991 439665 322696 5 5Fr 0.035 Medical (ZXH-3Z-07-035) DXT PIG 5fr Unknown 1 0 0 DXT JL4 5fr Unknown 1 0 0 DXT 3DRC 5fr Unknown 1 0 0 INFLATOR Merit Merit 1 [id number] 442192 424033 458466 15 Plutora ([id number]) CHOICE PT Extra May 1 [id number] 157178 632867 299493 5 Support 182cm Scientific wire ([id number]) SHEATH Prelude Merit 1 BDD-5S-[id number] 847706 8849549 672916 5 6Fr 0.035 Medical ([id number]-8Q-70-035) Auburn Auburn 1 [id number] 613981 764260 957343 8 Lytton Eagleye IVUS Catheter (00179H) GUIDE 6FR AR Medtronic 1 [id number] 174023 67458 238140 1 1.0 catheter ([id number]) DIANE RX 3.5 x Medtronic 1 [id number] 589635 7447551 000606 5 [id number] 18 stent ([id number]) EXOSEAL 6Fr Cardinal 1 EX600 777403 621606 846561 10 (EX600) Health Signature Audit [place] Stage Time Signature Unsigned Intra-Procedure 02/22/2018 Evans Elena 10:49:58 AM RT(R) Signatures Monitor : Evans Elena RT Signature : Date : Time : [address] [address]
--- NOTE | ~2018-02-21 | DS ---
PATIENT:ANTONI JOSEPH :53 MEDICAL RECORD: [id number] DISCHARGE SUMMARY ADMISSION DATE: 02/21/18 DISCHARGE DATE: 02/23/18 DATE OF ADMISSION: 02/21/2018 DATE OF DISCHARGE: 02/23/2018 DISCHARGE DIAGNOSES: 1. Non-Q-wave myocardial infarction. 2. Coronary artery disease. 3. Chronic obstructive pulmonary disease. 4. Hypertension. 5. Hyperlipidemia. 6. Vitamin D deficiency. 7. Vitamin B12 deficiency. 8. Chronic low back pain. 9. Osteoporosis. 10. Tobacco abuse. 11. Neural foraminal stenosis of lumbar spine. CONSULTANTS: Luther Frederick MD PROCEDURES: 1. PTCA and stent to the right coronary artery. 2. PTCA and stent to the left circumflex. 3. PTCA and stent to the LAD. BRIEF HISTORY AND COURSE IN THE CORTES: This is a 63-year-old white female with history of COPD, hypertension, coronary artery disease and hyperlipidemia, who was admitted for acute shortness of breath associated with cough, congestion. The patient had sudden onset of shortness of breath with oxygen saturation of 83% at home. Cardiac enzymes were elevated in the Emergency Room. Cardiology was consulted. The patient was diagnosed with non-Q-wave myocardial infarction. The patient had an echocardiogram done on 02/22/2018, which showed ejection fraction of 50%. The patient underwent left heart catheterization on 02/22/2018 and is status post PTCA and stent of the right coronary artery. The patient then had another procedure on 02/23/[address] Frederick. She underwent a PTCA and stent to the circumflex and the LAD. Postoperatively, she was stable and was discharged home. DISCHARGE INSTRUCTIONS DISCHARGE DIET: Regular. ACTIVITY: As tolerated. FOLLOWUP: With Dr. Devine and Dr. Frederick. MEDICATIONS: Per discharge reconciliation orders. TRANSINT:[id number] Voice Confirmation ID: [id number] DOCUMENT ID: [id number] DISCHARGE SUMMARY REPORT [id number] ANTONI JOSEPH FERDINAND MD at 0729 CC: [id number] DICTATION DATE: 03/11/18 1208 DURALUMIN METALWORKER: 03/12/18 0553 DIS IN 02/23/18 [place] [id number]
[~2018-02-21 18:03] MED LIST: ADVAIR 500/501 DISK INH; ATIVAN0.5 MG PO; B-12 DOTS500 MCG PO; CALCI-CHEW1 TAB.CHEW PO; INDERAL 40 MG T40 MG PO; IPRAT-ALBUT 0.5-3 ML UPD; MORPHINE SULFAT15 M4 PO; PRAVACHOL40 MG PO; PROAIR HFA8.5 GM INH; PROTONIX40 MG PO; SOMA350 MG PO; TYLENOL #4 W/CO1 TAB PO; VITAMIN B-12500 MCG PO; VITAMIN D31000 UNI2 PO
[2018-02-21 18:33] LABS: BASOPHILS 0.4 % (0-2); EOSINOPHILS 1.9 % (0-7); HEMATOCRIT 44.8 % (36.0-48.0); HEMOGLOBIN 14.9 g/dL (12-16); IMMATURE GRANULOCYTES 0.3 % (0-5); LYMPHOCYTES 42.3 % (15-50); MCH 32.5 pg (26.0-34.0); MCHC 33.3 g/dL (31.0-37.0); MCV 97.8 fL (80.0-100.0); MEAN PLATELET VOLUME 9.2 fL (7.4-10.4); MONOCYTES 4.6 % (2-11); NEUTROPHILS 50.5 % (40-80); PLATELET COUNT 243 10x3/uL (130-400); RBC 4.58 10x6/uL (4.00-5.40); RDW 11.8 % (11.5-14.5); WBC 11.3 10x3/uL (4.8-10.8)
[2018-02-21 19:48] LABS: APPEARANCE CLEAR (CLEAR); BILIRUBIN NEGATIVE (NEGATIVE); COLOR YELLOW (YELLOW); GLUCOSE NEGATIVE (NEGATIVE); KETONE NEGATIVE (NEGATIVE); NITRITE NEGATIVE (NEGATIVE); PROTEIN 2+ mg/dL (NEGATIVE); SPECIFIC GRAVITY 1.015 (1.005-1.020); UROBILINOGEN NORMAL (NORMAL)
[2018-02-21 19:49] LABS: BACTERIA FEW /hpf (NONE SEEN); EPITHELIAL CELLS OCC /hpf (0-5); RED CELLS - URINE 0-5 /hpf (0-5); WHITE CELLS - URINE 0-5 /hpf (0-5)
[2018-02-21 19:52] VITALS: BP 98/70
[2018-02-21 20:05] LABS: ALBUMIN 3.6 g/dL (3.4-5.0); ALKALINE PHOSPHATASE 93 U/L (46-116); ALT (SGPT) 58 U/L (10-68); BILIRUBIN - TOTAL 0.22 mg/dL (0.2-1.3); CALCIUM 8.8 mg/dL (8.5-10.1); CARBON DIOXIDE 24.8 mmol/L (21.0-32.0); CHLORIDE - SERUM 101 mmol/L (98-107); CREATININE - SERUM 0.7 mg/dL (0.6-1.3); POTASSIUM - SERUM 4.2 mmol/L (3.5-5.1); PROTEIN - SERUM 7.2 g/dL (6.4-8.2); SODIUM 137 mmol/L (136-145); UREA NITROGEN 7 mg/dL (7-18); eGFR NON AFRICAN AMERICAN 89 mL/min (90-120)
[2018-02-21 20:20] LABS: CKMB 2.2 U/L (0.0-3.6); CREATINE KINASE 70 UL (21-215)
[2018-02-21 20:23] LABS: CALC OSMOLALITY 275 mosm/kg (275-300); GLUCOSE 175 mg/dL (74-106)
[2018-02-21 20:24] LABS: TROPONIN-I 0.245 ng/mL (0.000-0.060)
[2018-02-21 21:58] VITALS: BP 95/67
[2018-02-22] VITALS (7 sets, daily range): BP systolic 86–104; BP diastolic 49–68; Ht 165.1 cm; Wt 44.3 kg
[2018-02-22 04:11] LABS: BASOPHILS 0.1 % (0-2); EOSINOPHILS 0 % (0-7); HEMATOCRIT 39.5 % (36.0-48.0); IMMATURE GRANULOCYTES 0.2 % (0-5); LYMPHOCYTES 18.9 % (15-50); MCH 31.6 pg (26.0-34.0); MCHC 32.9 g/dL (31.0-37.0); MCV 95.9 fL (80.0-100.0); MEAN PLATELET VOLUME 9.4 fL (7.4-10.4); MONOCYTES 4.2 % (2-11); NEUTROPHILS 76.6 % (40-80); PLATELET COUNT 228 10x3/uL (130-400); RBC 4.12 10x6/uL (4.00-5.40); RDW 11.8 % (11.5-14.5)
[2018-02-22 04:43] LABS: CALCIUM 8.7 mg/dL (8.5-10.1); CARBON DIOXIDE 29.8 mmol/L (21.0-32.0); CHLORIDE - SERUM 101 mmol/L (98-107); POTASSIUM - SERUM 3.9 mmol/L (3.5-5.1); SODIUM 137 mmol/L (136-145)
[2018-02-22 04:46] LABS: CALC OSMOLALITY 274 mosm/kg (275-300); CREATININE - SERUM 0.4 mg/dL (0.6-1.3); GLUCOSE 127 mg/dL (74-106); TROPONIN-I 1.871 ng/mL (0.000-0.060); UREA NITROGEN 9 mg/dL (7-18); eGFR NON AFRICAN AMERICAN > 90 mL/min (90-120)
[2018-02-23 00:54] VITALS: BP 89/58
[2018-02-23 05:32] VITALS: BP 90/50
[2018-02-23 08:31] VITALS: BP 132/66
[2018-02-23] MEDS ORDERED: PLAVIX75 MG PO (10:31)
[2018-02-23] MEDS ORDERED: BAYER CHEWABLE81 MG PO (10:31)
== END 2018-02-23 13:45 | disposition home or self-care (01) | DRG 246 ==
LOC: D.ER 18:03 → D.M2 21:28 → D.EDHOLD 21:28 → D.M2 22:06 → D.CLR 02-23 10:19
PROVIDERS: Family Medicine; Internal Medicine Interventional Cardiology
PROC: 027034Z Dilation of Coronary Artery, One Artery with Drug-eluting Intraluminal Device, Percutaneous Approach (ICD-10-PCS; 2018-02-22)
PROC: B240ZZ3 Ultrasonography of Single Coronary Artery, Intravascular (ICD-10-PCS; 2018-02-22)
PROC: 4A023N7 Measurement of Cardiac Sampling and Pressure, Left Heart, Percutaneous Approach (ICD-10-PCS; 2018-02-22)
PROC: B2111ZZ Fluoroscopy of Multiple Coronary Arteries using Low Osmolar Contrast (ICD-10-PCS; 2018-02-22)
PROC: B2151ZZ Fluoroscopy of Left Heart using Low Osmolar Contrast (ICD-10-PCS; 2018-02-22)
PROC: 027136Z Dilation of Coronary Artery, Two Arteries with Three Drug-eluting Intraluminal Devices, Percutaneous Approach (ICD-10-PCS; principal; 2018-02-23 08:30)
PROC: B240ZZ3 Ultrasonography of Single Coronary Artery, Intravascular (ICD-10-PCS; 2018-02-23 08:30)
DX: I21.4 Non-ST elevation (NSTEMI) myocardial infarction (principal); I25.119 Atherosclerotic heart disease of native coronary artery with unspecified angina pectoris; E55.9 Vitamin D deficiency, unspecified; E53.8 Deficiency of other specified B group vitamins; M81.0 Age-related osteoporosis without current pathological fracture; J43.9 Emphysema, unspecified; M48.061 Spinal stenosis, lumbar region without neurogenic claudication; F41.9 Anxiety disorder, unspecified; I10 Essential (primary) hypertension; Z72.0 Tobacco use; E78.5 Hyperlipidemia, unspecified